=== PATIENT | female | born 1980 | race Caucasian/White ===

== ENCOUNTER 2023-09-18 20:21 | Emergency (ER) | payer OTHER ==
[~2023-09-18] VITALS: Ht 165.1 cm; Wt 73.0 kg
[2023-09-18 20:24] VITALS: BP 150/82; PULSE 79; RESP 16; TEMP 98.2; O2SAT 98
[2023-09-18 21:38] LABS: BASOPHILS % 0.3 % (0.0-2.0); DIFFERENTIAL COMMENT 0; EOSINOPHILS % 4.4 % (0.0-5.0); HEMATOCRIT. 33.7 % (36.0-48.0); HEMOGLOBIN. 10.4 g/dL (12.0-16.0); MEAN CORPUSCULAR HEMOGLOBIN 23.3 pg (28.0-32.0); MEAN CORPUSCULAR VOLUME 75.1 fL (81.0-99.0); MEAN PLATELET VOLUME 7.1 fl (7.4-10.4); MONOCYTES % 9.9 % (2.0-8.0); NEUTROPHILS % 67.4 % (40.0-76.0); PLATELET 376 x1000/uL (130-400); RED BLOOD CELL COUNT 4.49 mill/uL (4.2-5.4); RED CELL DISTRIBUTION WIDTH 20.1 % (11.6-14.6); WHITE BLOOD COUNT 8.6 x1000/uL (4.5-11.0)
[2023-09-18 21:40] LABS: CHLORIDE 103 mEq/L (98-107); SODIUM 135 mEq/L (136-145)
[2023-09-18 21:41] LABS: CARBON DIOXIDE 25 mEq/L (21-32)
[2023-09-18 21:42] LABS: CALCIUM 8.5 mg/dL (8.7-10.4)
[2023-09-18 21:46] LABS: CREATININE 0.8 mg/dL (0.6-1.0)
[2023-09-18 21:47] LABS: GLUCOSE 88 mg/dL (70-105)
[2023-09-18 21:48] LABS: ALANINE AMINOTRANSFERASE 9 IU/L (10-49)
[2023-09-18 21:49] LABS: ALBUMIN 3.7 g/dL (3.2-4.8); ASPARTATE AMINOTRANSFERASE 22 IU/L (<34); BILIRUBIN TOTAL 0.2 mg/dL (0.1-1.0); PROTEIN TOTAL 6.9 g/dL (6.0-8.3)
[2023-09-18 21:54] LABS: ETHANOL BLOOD < 10 mg/dL (<10); UREA NITROGEN BLOOD < 5 mg/dL (9-23)
[2023-09-18] MEDS ORDERED: LEVETIRACETAM 500MG TABLET PO ONE (23:00)
[2023-09-19] MEDS ORDERED: KEPP500 MT ×2 (00:05→06:11)
[2023-09-19] MEDS: LEVETIRACETAM 500MG TABLET PO NR (01:15)
[2023-09-19] MEDS ORDERED: ACET-2708 MT (06:11)
== END 2023-09-19 01:45 | disposition home or self-care (01) ==
LOC: ER 20:21 → EDBD 20:21 → ER 09-19 01:45
DX: R56.9 Unspecified convulsions (principal); F32.9 Major depressive disorder, single episode, unspecified
CPT/HCPCS: 36415; 80053; 80320; 85025; 99283; G0480

== ENCOUNTER 2023-09-19 02:31 | Emergency (ER) | payer OTHER ==
[~2023-09-19] VITALS: Ht 157.5 cm; Wt 71.0 kg
[~2023-09-19 02:31] MED LIST: KEPP500 MT
[2023-09-19 03:27] VITALS: O2SAT 100
[2023-09-19] MEDS ORDERED: KEPP500 MT (06:11)
[2023-09-19] MEDS ORDERED: ACET-2708 MT (06:11)
[2023-09-19] MEDS: ACETAMINOPHEN 325MG TABLET PO ONE (06:26)
[2023-09-19 06:30] VITALS: BP 134/78; PULSE 76; RESP 15; TEMP 98.3
== END 2023-09-19 06:36 | disposition home or self-care (01) ==
LOC: ER 02:58
DX: G44.209 Tension-type headache, unspecified, not intractable (principal); Z98.890 Other specified postprocedural states; Z85.9 Personal history of malignant neoplasm, unspecified
CPT/HCPCS: 99284

== ENCOUNTER 2023-09-27 18:33 | Emergency (ER) | payer OTHER ==
[~2023-09-27] VITALS: Ht 167.6 cm; Wt 75.0 kg
[~2023-09-27 18:33] MED LIST changes: +ACET-2708 MT
[2023-09-27 18:40] VITALS: O2SAT 100
[2023-09-27] MEDS ORDERED: LEVETIRACETAM 1000MG PREMIX 100 ML IV ONE (18:45)
[2023-09-27 19:26] LABS: BASOPHILS % 0.6 % (0.0-2.0); DIFFERENTIAL COMMENT 0; EOSINOPHILS % 4.2 % (0.0-5.0); HEMATOCRIT. 36.2 % (36.0-48.0); HEMOGLOBIN. 11.2 g/dL (12.0-16.0); LYMPHOCYTES % 28.2 % (20.0-50.0); MEAN CORPUSCULAR HEMOGLOBIN 23.4 pg (28.0-32.0); MEAN CORPUSCULAR VOLUME 75.4 fL (81.0-99.0); MEAN PLATELET VOLUME 7.3 fl (7.4-10.4); MONOCYTES % 7.3 % (2.0-8.0); NEUTROPHILS % 59.7 % (40.0-76.0); PLATELET 348 x1000/uL (130-400); RED BLOOD CELL COUNT 4.79 mill/uL (4.2-5.4); RED CELL DISTRIBUTION WIDTH 19.8 % (11.6-14.6); WHITE BLOOD COUNT 8.1 x1000/uL (4.5-11.0)
[2023-09-27 19:30] LABS: CHLORIDE 106 mEq/L (98-107); SODIUM 136 mEq/L (136-145)
[2023-09-27 19:31] LABS: CALCIUM 9.3 mg/dL (8.7-10.4); CARBON DIOXIDE 26 mEq/L (21-32)
[2023-09-27 19:36] LABS: CREATININE 0.9 mg/dL (0.6-1.0); GLUCOSE 77 mg/dL (70-105); HCG SCREEN NEGATIVE; UREA NITROGEN BLOOD 7 mg/dL (9-23)
[2023-09-27] MEDS: LEVETIRACETAM 500MG TABLET PO ONE (21:20)
[2023-09-27 22:58] VITALS: BP 125/81; PULSE 69; RESP 16; TEMP 98.4
== END 2023-09-27 23:23 | disposition home or self-care (01) ==
LOC: ER 18:33
DX: R56.9 Unspecified convulsions (principal); Z98.890 Other specified postprocedural states
CPT/HCPCS: 36415; 80048; 84703; 85025; 99291

== ENCOUNTER 2023-09-29 16:08 | Emergency (ER) | payer OTHER ==
[~2023-09-29] VITALS: Ht 165.1 cm; Wt 80.0 kg
[2023-09-29 16:09] VITALS: BP 132/81; PULSE 82; RESP 18; TEMP 98.6; O2SAT 99
[2023-09-29] MEDS: LEVETIRACETAM 500MG TABLET PO NR (16:45)
[2023-09-29] MEDS ORDERED: LEVETIRACETAM 100MG/ML ORAL SYR PO ONE (16:45)
[2023-09-29] MEDS ORDERED: KEPP500 MT (17:08)
== END 2023-09-29 18:16 | disposition home or self-care (01) ==
LOC: ER 16:08
DX: R56.9 Unspecified convulsions (principal); Z98.890 Other specified postprocedural states; Z85.9 Personal history of malignant neoplasm, unspecified
CPT/HCPCS: 99283